=== PATIENT | male | born 1940 | race Caucasian/White ===

== ENCOUNTER 2017-07-31 12:16 | Emergency (ER) | payer MEDICARE ==
[~2017-07-31] VITALS: Ht 172.7 cm; Wt 85.0 kg
[~2017-07-31 12:16] MED LIST: AMLO10 PO; ASPI81 PO; LOSA25TA31 PO; ROBA750T3 PO; SIMV20 PO; TRAM50 PO
[2017-07-31 12:18] VITALS: BP 169/77; PULSE 83; RESP 18; TEMP 99.1; O2SAT 94
[2017-07-31] MEDS ORDERED: ASPI1TAB57 PO (12:58)
[2017-07-31] MEDS ORDERED: LOSA25TA PO (12:58)
[2017-07-31] MEDS ORDERED: METF500T PO (12:58)
[2017-07-31] MEDS ORDERED: ATOR20TA15 PO (12:58)
[2017-07-31] MEDS ORDERED: AMLO10TA2 PO (12:58)
--- NOTE | 2017-07-31 13:31 | PD ---
HPI Chief Complaint: Cold / Flu Symptoms Time Seen by Provider: 13:04 Travel History International Travel<30 days: No Contact w/Intl Traveler<30days: No Traveled to known affect area: No History of Present Illness HPI This is a 76-year-old male who reports that for 10 days he's had intermittent shaking, chills and sweats, constant, moderate severity associated with intermittent fevers up to 102. He says today he feels a lot better but he was reading on the [employer] website that if he has the flu he should come to the emergency department and get antivirals to be treated. He denies any cough, rhinorrhea, sore throat, dysuria or abdominal pain or vomiting. PFSH Past Medical History High Cholesterol: Yes Cerebrovascular Accident: Yes Hypertension: Yes Social History Alcohol Use: Yes Tobacco Use: No Substance Use: No Allergies-Medications (Allergen,Severity, Reaction): Coded Allergies: hydrocodone (Unverified Allergy, Intermediate, 04/25/17) clopidogrel (Verified Allergy, Unknown, 07/31/17) Reported Meds & Prescriptions Reported Meds & Active Scripts Active Reported Atorvastatin (Atorvastatin Calcium) 20 Mg Tab 20 Mg PO HS Metformin (Metformin HCl) 500 Mg Tab 500 Mg PO BIDPC Losartan (Losartan Potassium) 25 Mg Tab 25 Mg PO DAILY Aspirin 81 (Aspirin) 81 Mg Tabdr 81 Mg PO DAILY Amlodipine (Amlodipine Besylate) 10 Mg Tab 10 Mg PO DAILY Review of Systems Except as stated in HPI: all other systems reviewed are Neg Physical Exam Narrative GENERAL: Frail elderly male in no acute distress. SKIN: Focused skin assessment warm and dry. HEAD: Atraumatic. Normocephalic. EYES: Pupils equal and round. No injection or drainage. ENT: Moist mucous membranes NECK: Trachea midline. CARDIOVASCULAR: Regular rate and rhythm. No murmur appreciated. RESPIRATORY: Clear to auscultation. Breath sounds equal bilaterally. GASTROINTESTINAL: Abdomen soft, non-tender, nondistended. MUSCULOSKELETAL: No obvious deformities. NEUROLOGICAL: Awake and alert. No obvious cranial nerve deficits. Moving all extremities. PSYCHIATRIC: Appropriate mood and affect; insight and judgment normal. Data Data Last Documented VS Vital Signs Date Time Temp Pulse Resp B/P (MAP) Pulse Ox O2 Delivery O2 Flow Rate FiO2 07/31/17 12:18 99.1 83 18 169/77 (107) 94 Orders Orders Influenzae A/B Antigen (07/31/17 13:12) MDM Medical Decision Making Medical Screen Exam Complete: Yes Emergency Medical Condition: Yes Differential Diagnosis Influenza, upper respiratory infection, urinary tract infection, viral syndrome Narrative Course This is a 76-year-old male who presents to the emergency department with myalgias and sweats with a reported temperature of 102 at home. Here he is afebrile. He is well-appearing. He doesn't localize any signs of infection. We will perform an influenza test. If negative I think he's safe to follow-up with his primary care physician for further workup. Shannan Wang MD Jul 31, 2017 13:31
--- NOTE | 2017-07-31 14:05 | PD ---
Data Data Last Documented VS Vital Signs Date Time Temp Pulse Resp B/P (MAP) Pulse Ox O2 Delivery O2 Flow Rate FiO2 07/31/17 12:18 99.1 83 18 169/77 (107) 94 Orders Orders Influenzae A/B Antigen (07/31/17 13:12) MDM Supervised Visit with [facility]: No Narrative Course Patient's influenza test was negative. He otherwise is nontoxic appearing and afebrile here and doesn't localize any infectious symptoms. I think he can follow-up with his outpatient provider which I expressed to him. Diagnosis Primary Impression: Chills Patient Instructions: General Instructions Additional Instruction: If you develop persistent fevers or chills or not feeling well you should be seen by your primary care doctor as there are more tests as an outpatient that you will require. Med/Other Pt SpecificInfo: No Change to Meds Disposition: 01 DISCHARGE HOME Condition: Stable Shannan Wang MD Jul 31, 2017 14:05
== END 2017-07-31 14:37 | disposition home or self-care (01) ==
LOC: NETRI 12:16
DX: R50.9 Fever, unspecified (principal); M79.1 Myalgia; E78.00 Pure hypercholesterolemia, unspecified; I10 Essential (primary) hypertension; Z86.73 Personal history of transient ischemic attack (TIA), and cerebral infarction without residual deficits; Z79.82 Long term (current) use of aspirin; Z79.899 Other long term (current) drug therapy
CPT/HCPCS: 87804; 99283